=== PATIENT | male | born 1935 | race Caucasian/White ===

== ENCOUNTER 2020-11-03 06:54 | Day surgery (SDC) | payer MEDICARE, BC ==
[~2020-11-03] VITALS: Ht 175.3 cm; Wt 99.0 kg
[~2020-11-03 06:54] MED LIST: ALFUZOSIN HCL10 MG PO; ASCO500 PO; ASPI81CH PO; ASPI81EC PO; ATOR40TA PO; Amox Tr-K Clv1 EAC2 PO; BENZ100A PO; CHOL10002 PO; COQ1050 MG PO; DILT120ERA PO; DILT240; DILT240ER PO; DILTIAZEM ER240 MG PO; FISH1000 PO; HYDACE5 PO; HYDR1TAB94 PO; IBUPROFEN; LEVFLO500 PO; METF500C PO; MONT10T; MONT10T PO; MULVITMIND PO; NAPR220 PO; OLME40 PO; PROM25 PO; ROSU10TA; ROSU10TA PO; ROSUVASTATIN CA20 MG PO; Vitamin C100 M1 PO
[2020-11-03] MEDS ORDERED: TADALAFIL5 M1 PO (07:48)
[2020-11-03] MEDS ORDERED: TAMS.4ER PO (07:48)
[2020-11-03] MEDS ORDERED: FINA5 (07:49)
[2020-11-03] MEDS ORDERED: AMLODIPINE BESYL5 MG PO (07:49)
[2020-11-03] MEDS ORDERED: HYDRA25 PO (07:50)
[2020-11-03] MEDS ORDERED: LOSA25 PO (07:50)
--- NOTE | 2020-11-03 08:03 | NUR ---
11/03/20 0803 Mei Beach PERFORMED ON [facility]
== END 2020-11-03 08:54 | disposition home or self-care (01) ==
LOC: ORSCSDS 06:54
PROVIDERS: Orthopaedic Surgery
PROC: 01N50ZZ Release Median Nerve, Open Approach (ICD-10-PCS; principal; 2020-11-03 08:00)
DX: G56.01 Carpal tunnel syndrome, right upper limb (principal); E11.9 Type 2 diabetes mellitus without complications; E66.9 Obesity, unspecified; Z68.32 Body mass index [BMI] 32.0-32.9, adult; Z79.82 Long term (current) use of aspirin; Z79.84 Long term (current) use of oral hypoglycemic drugs; Z79.899 Other long term (current) drug therapy
CPT/HCPCS: 82947; J0690; J2704; J7120

== ENCOUNTER 2021-07-22 08:21 | Day surgery (SDC) | payer MEDICARE, BC ==
[~2021-07-22] VITALS: Ht 175.3 cm; Wt 99.2 kg
[~2021-07-22 08:21] MED LIST changes: +AMLODIPINE BESYL5 MG PO; +FINA5; +HYDRA25 PO; +LOSA25 PO; +TADALAFIL5 M1 PO; +TAMS.4ER PO
[2021-07-22] MEDS ORDERED: HYDCHL25 PO (08:51)
--- NOTE | 2021-07-22 09:01 | NUR ---
07/22/21 0901 Lisa Duarte TETRACAINE PLACED TO RIGHT EYE @ 0852. PLEDGIT PLACED TO RIGHT EYE @ 0853. PT TOLERATED WELL. CALL LIGHT IN REACH.
== END 2021-07-22 10:58 | disposition home or self-care (01) ==
LOC: ORSCSDS 08:21
PROVIDERS: Ophthalmology
PROC: 08RJ3JZ Replacement of Right Lens with Synthetic Substitute, Percutaneous Approach (ICD-10-PCS; principal; 2021-07-22 09:30)
DX: H25.11 Age-related nuclear cataract, right eye (principal); I10 Essential (primary) hypertension; E11.9 Type 2 diabetes mellitus without complications; J44.9 Chronic obstructive pulmonary disease, unspecified; Z87.891 Personal history of nicotine dependence; Z79.84 Long term (current) use of oral hypoglycemic drugs; Z79.899 Other long term (current) drug therapy
CPT/HCPCS: 82947; J2001; J2250; J3301; J7040; V2632

== ENCOUNTER 2021-09-23 08:03 | Day surgery (SDC) | payer MEDICARE, BC ==
[~2021-09-23] VITALS: Ht 170.2 cm; Wt 100.4 kg
[~2021-09-23 08:03] MED LIST changes: +ALFU10 PO; +EPIPEN0.3 MG/0.3 IM; +FINA5 PO; +HYDCHL25 PO; +IPRATROPIUM BRO30 ML; +LOSARTAN POTAS100 M1 PO; +METF500
--- NOTE | 2021-09-23 08:33 | NUR ---
09/23/21 0833 Abraham Estrella CALL LIGHT WITHIN REACH. MARSHALL PAULINO IN ROOM TO ASSIST GET PT READY IN PRE-OP
== END 2021-09-23 10:03 | disposition home or self-care (01) ==
LOC: ORSCSDS 08:03
PROVIDERS: Ophthalmology
PROC: 08RK3JZ Replacement of Left Lens with Synthetic Substitute, Percutaneous Approach (ICD-10-PCS; principal; 2021-09-23 14:15)
DX: H25.12 Age-related nuclear cataract, left eye (principal); E11.9 Type 2 diabetes mellitus without complications; I10 Essential (primary) hypertension; G47.33 Obstructive sleep apnea (adult) (pediatric); Z87.891 Personal history of nicotine dependence; Z79.899 Other long term (current) drug therapy
CPT/HCPCS: 82947; J2001; J2250; J3010; J3301; J7040; V2632

== ENCOUNTER 2021-11-16 06:48 | Day surgery (SDC) | payer MEDICARE, BC ==
[~2021-11-16] VITALS: Ht 175.3 cm; Wt 98.8 kg
[2021-11-16] MEDS ORDERED: Crestor20 MG PO (07:34)
--- NOTE | 2021-11-16 08:23 | NUR ---
11/16/21 0823 IVETT TAVARES PT CHATTY POST SURGERY, NO PAIN OR NAUSEA AT THIS TIME.
== END 2021-11-16 08:56 | disposition home or self-care (01) ==
LOC: ORSCSDS 06:48
PROVIDERS: Orthopaedic Surgery
PROC: 01N50ZZ Release Median Nerve, Open Approach (ICD-10-PCS; principal; 2021-11-16 08:00)
DX: G56.03 Carpal tunnel syndrome, bilateral upper limbs (principal); I10 Essential (primary) hypertension; E78.5 Hyperlipidemia, unspecified; E11.9 Type 2 diabetes mellitus without complications; Z79.82 Long term (current) use of aspirin; E66.9 Obesity, unspecified; Z68.32 Body mass index [BMI] 32.0-32.9, adult; Z79.899 Other long term (current) drug therapy; G47.33 Obstructive sleep apnea (adult) (pediatric)
CPT/HCPCS: 82947; J2704; J7120

== ENCOUNTER 2022-09-28 09:22 | Emergency (ER) | payer MEDICARE, BC ==
[~2022-09-28] VITALS: Ht 172.7 cm; Wt 98.9 kg
[~2022-09-28 09:22] MED LIST changes: +Amiodarone HCl200 MG PO; +CEPH500 PO; +Crestor20 MG PO; +METOPROLOL SUCC25 MG PO; +Norco 5-325 Ta1 EACH PO
== END 2022-09-28 11:39 | disposition home or self-care (01) ==
LOC: ER 09:22
DX: Z48.00 Encounter for change or removal of nonsurgical wound dressing (principal); Z91.09 Other allergy status, other than to drugs and biological substances; Z79.899 Other long term (current) drug therapy; Z79.84 Long term (current) use of oral hypoglycemic drugs; Z87.891 Personal history of nicotine dependence
CPT/HCPCS: 99282

== ENCOUNTER 2022-10-07 01:45 | Day surgery (SDC) | payer MEDICARE, BC | END 2022-10-07 22:56 | disposition home or self-care (01) | LOC: WOUND 01:45 | DX: S68.012A Complete traumatic metacarpophalangeal amputation of left thumb, initial encounter (principal); S68.111A Complete traumatic metacarpophalangeal amputation of left index finger, initial encounter; S68.113A Complete traumatic metacarpophalangeal amputation of left middle finger, initial encounter; S68.117A Complete traumatic metacarpophalangeal amputation of left little finger, initial encounter | CPT/HCPCS: G0463 ==

== ENCOUNTER 2022-10-10 00:11 | Day surgery (SDC) | payer MEDICARE, BC | END 2022-10-10 22:40 | disposition home or self-care (01) | LOC: WOUND 00:11 | DX: S62.522B Displaced fracture of distal phalanx of left thumb, initial encounter for open fracture (principal) | CPT/HCPCS: G0463 ==

== ENCOUNTER 2022-10-14 01:28 | Day surgery (SDC) | payer MEDICARE, BC | END 2022-10-14 22:55 | disposition home or self-care (01) | LOC: WOUND 01:28 | DX: S62.522B Displaced fracture of distal phalanx of left thumb, initial encounter for open fracture (principal) | CPT/HCPCS: G0463 ==

== ENCOUNTER 2022-10-21 02:09 | Day surgery (SDC) | payer MEDICARE, BC | END 2022-10-21 22:46 | disposition home or self-care (01) | LOC: WOUND 02:09 | DX: T87.81 Dehiscence of amputation stump (principal); S62.522B Displaced fracture of distal phalanx of left thumb, initial encounter for open fracture; S61.207D Unspecified open wound of left little finger without damage to nail, subsequent encounter; S61.0 Open wound of thumb without damage to nail | CPT/HCPCS: 99406; A9270 ==

== ENCOUNTER 2022-10-24 00:52 | Day surgery (SDC) | payer MEDICARE, BC | END 2022-10-24 22:56 | disposition home or self-care (01) | LOC: WOUND 00:52 | DX: S62.522B Displaced fracture of distal phalanx of left thumb, initial encounter for open fracture (principal); S62.522G Displaced fracture of distal phalanx of left thumb, subsequent encounter for fracture with delayed healing; X58.XXXA Exposure to other specified factors, initial encounter | CPT/HCPCS: G0463 ==

== ENCOUNTER 2022-10-26 02:21 | Day surgery (SDC) | payer MEDICARE, BC | END 2022-10-26 22:49 | disposition home or self-care (01) | LOC: WOUND 02:21 | DX: S62.522G Displaced fracture of distal phalanx of left thumb, subsequent encounter for fracture with delayed healing (principal) | CPT/HCPCS: G0463 ==

== ENCOUNTER 2022-10-31 00:40 | Day surgery (SDC) | payer MEDICARE, BC | END 2022-10-31 22:38 | disposition home or self-care (01) | LOC: WOUND 00:40 | DX: T81.31XA Disruption of external operation (surgical) wound, not elsewhere classified, initial encounter (principal); T81.89XA Other complications of procedures, not elsewhere classified, initial encounter; S62.522A Displaced fracture of distal phalanx of left thumb, initial encounter for closed fracture; Y83.5 Amputation of limb(s) as the cause of abnormal reaction of the patient, or of later complication, without mention of misadventure at the time of the procedure | CPT/HCPCS: A9270; G0463 ==

== ENCOUNTER → 2022-11-30 | Outpatient (CLI) | payer MEDICARE, BC | LOC: PLD 07:58 → LAB SHORT 07:58 | DX: B35.1 Tinea unguium (principal); L60.2 Onychogryphosis | CPT/HCPCS: 88304; 88312 ==

== ENCOUNTER 2024-10-04 21:28 | Emergency (ER) | payer MEDICARE, BC ==
[~2024-10-04] VITALS: Ht 167.6 cm; Wt 98.4 kg
[2024-10-04 22:19] LABS: BASOPHILS ABSOLUTE AUTO 0.02 K/mm3 (0.00-0.23); BASOPHILS PERCENT AUTO 0 % (0-2); EOSINOPHILS ABSOLUTE AUTO 0.03 K/mm3 (0.00-0.68); EOSINOPHILS PERCENT AUTO 1 % (0-6); Hematocrit 48.2 % (37.0-53.0); Hemoglobin 16.9 g/dL (13.5-17.5); IMMATURE GRAN ABSOLUTE AUTO 0.06 K/mm3 (0.00-0.10); IMMATURE GRAN PERCENT AUTO 1 % (0-1); LYMPHOCYTES PERCENT AUTO 3 % (21-46); MONOCYTES ABSOLUTE AUTO 0.62 K/mm3 (0.16-1.47); MONOCYTES PERCENT AUTO 10 % (4-13); Mean Corpuscular HGB Conc 35.1 g/dL (31.5-36.5); Mean Corpuscular Volume 94 fL (80-100); Mean Platelet Volume 9.4 fL (9.1-12.4); NEUTROPHILS ABSOLUTE AUTO 5.52 K/mm3 (1.96-9.15); NEUTROPHILS PERCENT AUTO 86 % (41-73); Platelet Count 174 K/mm3 (150-400); RDW Coefficient Variation 12.4 % (11.7-14.2); RDW Standard Deviation 43.2 fL (35.1-46.3); Red Blood Cell Count 5.12 M/mm3 (4.30-5.90); White Blood Cell Count 6.45 K/mm3 (4.00-11.30)
[2024-10-04 22:32] LABS: Albumin, Blood 3.8 g/dL (3.4-5.0); Albumin/Globulin Ratio 1.2 (0.8-1.8); Bilirubin, Total 0.7 mg/dL (0.1-1.0); Bun/Creatinine Ratio 25.2 (12.0-20.0); Calcium, Blood 9.3 mg/dL (8.5-10.1); Creatinine, Blood 0.75 mg/dL (0.60-1.20); Globulin, Blood 3.1 g/dL (2.2-4.0); Potassium, Blood 4.1 mmol/L (3.5-5.5); Total Protein, Blood 6.9 g/dL (6.4-8.2)
[2024-10-04] MEDS ORDERED: NS 1,000 ML IV SCH (23:05)
[2024-10-04] MEDS ORDERED: Ondansetron HCl 2 MG / ML 2ML Vial IV ONE (23:05)
[2024-10-04 23:21] VITALS: BP 160/79
== END 2024-10-05 00:23 | disposition home or self-care (01) ==
LOC: ER 21:28
PROVIDERS: Student in an Organized Health Care Education/Training Program
DX: R11.0 Nausea (principal); E86.0 Dehydration; R42 Dizziness and giddiness; R79.89 Other specified abnormal findings of blood chemistry; E11.65 Type 2 diabetes mellitus with hyperglycemia; I10 Essential (primary) hypertension; E78.5 Hyperlipidemia, unspecified; J44.9 Chronic obstructive pulmonary disease, unspecified; Z87.891 Personal history of nicotine dependence; Z79.84 Long term (current) use of oral hypoglycemic drugs; Z79.899 Other long term (current) drug therapy
CPT/HCPCS: 80053; 84484; 85025; 93005; 93010; 96374; 99284-25; J2405; J7030